=== PATIENT | male | born 1990 | race Caucasian/White ===

== ENCOUNTER 2024-02-12 04:07 | Emergency (ER) | payer OTHER ==
[~2024-02-12] VITALS: Ht 170.2 cm; Wt 64.9 kg
[2024-02-12 04:14] VITALS: TEMP 97.9
[2024-02-12 04:40] VITALS: BP 138/88; O2SAT 99
== END 2024-02-12 05:04 ==
LOC: ER 04:18
DX: S41.112A Laceration without foreign body of left upper arm, initial encounter (principal); F10.90 Alcohol use, unspecified, uncomplicated; X58.XXXA Exposure to other specified factors, initial encounter; Y93.89 Activity, other specified; Y92.89 Other specified places as the place of occurrence of the external cause; Y99.8 Other external cause status